=== PATIENT | male | born 1990 | race African-American/Black ===

== ENCOUNTER 2017-07-18 15:47 | Emergency (ER) | payer BC ==
[~2017-07-18] VITALS: Ht 193 cm; Wt 113.4 kg
[~2017-07-18 15:47] MED LIST: COLACE100 MG PO; PEPCID PO; PHENERGAN25 MG RE
[2017-07-18] MEDS ORDERED: IBUPROFEN 600600 M1 PO (16:36)
[2017-07-18] MEDS ORDERED: NORCO 5-325 TA1 EACH PO (16:36)
[2017-07-18 19:05] VITALS: BP 133/89
== END 2017-07-18 17:02 | disposition home or self-care (01) ==
LOC: ER 15:47
DX: M25.562 Pain in left knee (principal); I10 Essential (primary) hypertension; F17.210 Nicotine dependence, cigarettes, uncomplicated; F10.99 Alcohol use, unspecified with unspecified alcohol-induced disorder; Z91.013 Allergy to seafood

== ENCOUNTER 2018-03-21 18:17 | Emergency (ER) | payer BC ==
[~2018-03-21] VITALS: Ht 193 cm; Wt 106.6 kg
--- NOTE | ~2018-03-21 | EKG ---
[place] [address] [facility] [place] [address] ELECTROCARDIOGRAM REPORT Name: BLANK QUIROGA Room [facility]: [id number] Admission: 03/21/18 Attend Phys: Discharge: 03/21/18 Date of : 88 Report #: [id number] THIS REPORT FOR: //name// [facility] ED Test Date: 2018-03-21 Test Time: 18:50:31 Pat Name: BLANK QUIROGA Department: Room: Gender: [employer] Job Tit[employer]: FELIPE : 1990 Requested By: Asaf Erickson Order Number: [id number] MD: Woo Bernabe Measurements Intervals [place] Rate: 69 P: 63 ID: [id number] QRS: 46 QRSD: 89 T: 15 QT: 370 QTc: 397 Interpretive Statements Sinus rhythm Probable left atrial enlargement No previous ECG available for comparison Electronically Signed On 03-22-2018 7:59:26 CDT by Woo Bernabe [email or web address] <ELECTRONICALLY SIGNED> By: Woo Bernabe MD 03/22/18 0759 [id number] 49 Woo Bernabe MD /SUSAN
[~2018-03-21 18:17] MED LIST changes: +AMLODIPINE BESY10 MG PO; +HYDROCHLOROTH12.5 M1 PO; +IBUPROFEN 600600 M1 PO; +IBUPROFEN 800800 M1 PO; +NORCO 5-325 TA1 EACH PO; +TRAMADOL 50 MG50 MG PO
[2018-03-21 19:10] LABS: ABSOLUTE NEUTROPHILS 7.1 thou/uL (1.4-8.2); BASOPHILS 0.5 % (0.0-2.0); HEMATOCRIT 41.1 % (42.0-52.0); HEMOGLOBIN 13.2 gm/dL (14.0-18.0); LYMPHOCYTES 29.3 % (24.0-44.0); MCH 24.1 pg (26.0-34.0); MCHC 32.2 g/dL (28.0-37.0); MCV 74.8 fL (80.0-100.0); MONOCYTES 4.9 % (1.0-8.0); PLATELET COUNT 169 thou/uL (150-400); POLYS 62.3 % (36.0-66.0); RBC 5.49 mil/uL (4.50-6.00); RDW 15.5 % (10.5-14.5); WBC 11.4 thou/uL (4.0-11.0)
[2018-03-21 19:16] LABS: ANION GAP 6 mmol/L (7-16); BUN 13 mg/dL (7-18); CALCIUM 8.9 mg/dL (8.5-10.1); CHLORIDE 102 mmol/L (98-107); CO2 29 mmol/L (21-32); GLUCOSE 85 mg/dL (74-106); POTASSIUM 3.6 mmol/L (3.5-5.1); SODIUM 137 mmol/L (136-145)
[2018-03-21 19:25] LABS: SGOT 23 U/L (15-37); SGPT 29 U/L (30-65); TOTAL BILIRUBIN 0.3 mg/dL (<0.1-1.0); TOTAL PROTEIN 7.7 g/dL (6.4-8.2); TROPONIN-I < 0.04 ng/mL (<0.06)
[2018-03-21 20:01] VITALS: BP 139/85
== END 2018-03-21 20:02 | disposition home or self-care (01) ==
LOC: ER 18:17
PROVIDERS: Physician Assistant
DX: R07.9 Chest pain, unspecified (principal); R42 Dizziness and giddiness; R51 Headache; F17.210 Nicotine dependence, cigarettes, uncomplicated; I10 Essential (primary) hypertension; Z91.041 Radiographic dye allergy status; Z91.013 Allergy to seafood

== ENCOUNTER 2018-04-18 19:56 | Emergency (ER) | payer BC ==
[~2018-04-18] VITALS: Ht 193 cm; Wt 106.6 kg
[2018-04-18 20:25] LABS: BASOPHILS 0.7 % (0.0-2.0); EOSINOPHILS 2.7 % (0.0-3.0); HEMATOCRIT 41.2 % (42.0-52.0); HEMOGLOBIN 13.5 gm/dL (14.0-18.0); LYMPHOCYTES 29.8 % (24.0-44.0); MCH 24.8 pg (26.0-34.0); MCHC 32.7 g/dL (28.0-37.0); MCV 75.7 fL (80.0-100.0); MONOCYTES 4.2 % (1.0-8.0); PLATELET COUNT 159 thou/uL (150-400); POLYS 62.6 % (36.0-66.0); RBC 5.45 mil/uL (4.50-6.00); RDW 14.8 % (10.5-14.5); WBC 11.2 thou/uL (4.0-11.0)
[2018-04-18 20:33] LABS: CALCIUM 8.9 mg/dL (8.5-10.1); CREATININE 1.2 mg/dL (0.7-1.3); POTASSIUM 3.4 mmol/L (3.5-5.1)
[2018-04-18 20:38] LABS: ALBUMIN 4.1 g/dL (3.4-5.0); TOTAL BILIRUBIN 0.3 mg/dL (<0.1-1.0); TOTAL PROTEIN 7.8 g/dL (6.4-8.2)
[2018-04-18 20:47] LABS: URINE BILIRUBIN NEGATIVE (Negative); URINE BLOOD NEGATIVE (Negative); URINE CLARITY CLEAR; URINE COLOR YELLOW; URINE GLUCOSE-RANDOM* NEGATIVE (Negative); URINE KETONES NEGATIVE (Negative); URINE LEUKOCYTES-REFLEX NEGATIVE (Negative); URINE NITRITE-REFLEX NEGATIVE (Negative); URINE PROTEIN (DIPSTICK) NEGATIVE (Negative); URINE SPECIFIC GRAVITY 1.025 (1.005-1.035); URINE UROBILINOGEN 0.2 E.U./dl (0.2-1.0)
[2018-04-18] MEDS ORDERED: COLACE100 MG PO (21:00)
[2018-04-18] MEDS ORDERED: MIRALAX17 GM PO (21:00)
[2018-04-18 21:10] VITALS: BP 131/77
== END 2018-04-18 21:11 | disposition home or self-care (01) ==
LOC: ER 19:56
PROVIDERS: Physician Assistant
DX: K59.00 Constipation, unspecified (principal); I10 Essential (primary) hypertension; F17.210 Nicotine dependence, cigarettes, uncomplicated; Z91.041 Radiographic dye allergy status; Z91.013 Allergy to seafood

== ENCOUNTER 2019-02-15 23:20 | Emergency (ER) | payer BC ==
[~2019-02-15] VITALS: Ht 193 cm; Wt 104.3 kg
[~2019-02-15 23:20] MED LIST changes: +MIRALAX17 GM PO
[2019-02-15 23:58] LABS: ABSOLUTE NEUTROPHILS 5.1 thou/uL (1.4-8.2); BASOPHILS 0.3 % (0.0-2.0); EOSINOPHILS 2.2 % (0.0-3.0); HEMATOCRIT 41.1 % (42.0-52.0); HEMOGLOBIN 13.4 gm/dL (14.0-18.0); LYMPHOCYTES 43.3 % (24.0-44.0); MCHC 32.5 g/dL (28.0-37.0); MONOCYTES 5.1 % (1.0-8.0); PLATELET COUNT 178 thou/uL (150-400); POLYS 49.1 % (36.0-66.0); RBC 5.55 mil/uL (4.50-6.00); RDW 14.7 % (10.5-14.5); WBC 10.3 thou/uL (4.0-11.0)
[2019-02-16 00:01] LABS: CALCIUM 9.4 mg/dL (8.5-10.1); POTASSIUM 3.9 mmol/L (3.5-5.1)
[2019-02-16 00:04] LABS: URINE BILIRUBIN NEGATIVE (Negative); URINE BLOOD NEGATIVE (Negative); URINE CLARITY CLEAR; URINE COLOR YELLOW; URINE GLUCOSE-RANDOM* NEGATIVE (Negative); URINE KETONES NEGATIVE (Negative); URINE LEUKOCYTES NEGATIVE (Negative); URINE NITRITE NEGATIVE (Negative); URINE PROTEIN (DIPSTICK) NEGATIVE (Negative); URINE SPECIFIC GRAVITY >= 1.030 (1.005-1.035)
[2019-02-16 00:08] LABS: ALBUMIN 3.9 g/dL (3.4-5.0); TOTAL BILIRUBIN 0.3 mg/dL (<0.1-1.0); TOTAL PROTEIN 7.3 g/dL (6.4-8.2)
[2019-02-16 01:30] VITALS: BP 126/82
== END 2019-02-16 01:35 | disposition home or self-care (01) ==
LOC: ER 23:20
PROVIDERS: Emergency Medicine
DX: T67.5XXA Heat exhaustion, unspecified, initial encounter (principal); R11.2 Nausea with vomiting, unspecified; F17.210 Nicotine dependence, cigarettes, uncomplicated; I10 Essential (primary) hypertension; Z91.041 Radiographic dye allergy status; Z91.013 Allergy to seafood

== ENCOUNTER → 2019-04-25 | Outpatient (CLI) | payer BC | LOC: ULTRA 08:02 | DX: I10 Essential (primary) hypertension (principal) ==

== ENCOUNTER 2019-06-06 20:10 | Emergency (ER) | payer BC ==
[~2019-06-06] VITALS: Ht 193 cm; Wt 117.9 kg
[2019-06-06 20:22] VITALS: BP 139/94
[2019-06-06] MEDS ORDERED: LIDOCAINE PAIN1 EACH TOP (21:14)
[2019-06-06] MEDS ORDERED: MOBIC15 MG PO (21:14)
== END 2019-06-06 21:20 | disposition home or self-care (01) ==
LOC: ER 20:10
DX: M54.5 Low back pain (principal); M54.6 Pain in thoracic spine; F17.210 Nicotine dependence, cigarettes, uncomplicated; I10 Essential (primary) hypertension; Z91.013 Allergy to seafood; Z91.041 Radiographic dye allergy status; V89.2XXA Person injured in unspecified motor-vehicle accident, traffic, initial encounter; Y92.89 Other specified places as the place of occurrence of the external cause; Y93.89 Activity, other specified; Y99.8 Other external cause status

== ENCOUNTER → 2019-06-08 | Outpatient (CLI) | payer BC ==
[~2019-06-08] MED LIST changes: +LIDOCAINE PAIN1 EACH TOP; +MOBIC15 MG PO
== END ==
LOC: RAD 10:18
DX: M54.9 Dorsalgia, unspecified (principal); M54.2 Cervicalgia; V89.2XXA Person injured in unspecified motor-vehicle accident, traffic, initial encounter; Y93.89 Activity, other specified; Y92.89 Other specified places as the place of occurrence of the external cause; Y99.8 Other external cause status